=== PATIENT | male | born 1980 ===

== ENCOUNTER 2020-08-06 14:45 | Outpatient (REF) | payer OTHER, SELFPAY | END 2020-08-06 14:46 | disposition home or self-care (01) | LOC: HO.LAB 14:45 | PROVIDERS: PCP Physician Assistant; Visit Provider Internal Medicine | DX: Z20.822 Contact with and (suspected) exposure to COVID-19 (principal) | CPT/HCPCS: 36415; C9803; U0003; U0005 ==

== ENCOUNTER 2021-12-28 19:12 | Emergency (ER) | payer MEDICAID, SELFPAY ==
--- NOTE | ~2021-12-28 | XR_ITS ---
EXAMINATION: XR HAND, RIGHT CLINICAL INFORMATION: Laceration COMPARISON: None TECHNIQUE: AP, oblique, lateral, coned first metacarpal ray radiographs of the right hand. FINDINGS: Soft tissue swelling and irregularity is present adjacent to the tuft of the first distal phalanx. No embedded radiopaque foreign bodies are identified. No fractures, subluxations or arthropathic changes are identified. XR/XR hand RT 2V IMPRESSION: Soft tissue inflammatory changes adjacent to the tuft of the first distal phalanx. No fractures. No embedded radiopaque foreign bodies.
[2021-12-28 19:14] VITALS: BP 135/87; PULSE 82; RESP 18; TEMP 37.1; O2SAT 96; BMI 33.4
[2021-12-28] MEDS: Tranexamic Acid 1,000 MG/10 ML VIAL 500 MG IV (20:01)
--- NOTE | 2021-12-28 20:03 | ED.WOUNDLAC ---
HPI - Wound/Laceration General Chief Complaint: Wound/Laceration Stated Complaint: R Thumb laceration Time Seen by Provider: 12/28/21 19:31 Source: patient Mode of arrival: ambulatory Limitations: no limitations History of Present Illness HPI narrative: Patient presents emergency department for evaluation of a laceration to the right thumb. 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 Denies any pain, numbness or tingling, actively bleeding. Unaware of last tetanus status. Related Data Previous Rx's Medication Instructions Recorded cyclobenzaprine 10 mg tablet 10 mg PO BEDTIME #14 tabs 02/27/21 meloxicam 15 mg tablet 15 mg PO DAILY #14 tabs 02/27/21 cephalexin 500 mg capsule 500 mg PO TID 5 days #15 caps 12/28/21 oxycodone 5 mg tablet 5 mg PO Q8H PRN pain #7 tabs 12/28/21 Allergies Allergy/AdvReac Type Severity Reaction Status Date / Time No Known Allergies Allergy Unverified 03/08/20 19:09 [No Known Allergies*] Review of Systems Review of Systems: Skin: Positive laceration Yes all other systems are reviewed and are negative [facility] Social History Social History Advance Directives: No Physical Exam Vital Signs: Vital Signs: Last Vital Signs Temp 98.5 F 12/28/21 22:06 Pulse 80 12/28/21 22:06 Resp 18 12/28/21 22:06 BP 128/65 12/28/21 22:06 Pulse Ox 98 12/28/21 22:06 O2 Del Method 12/28/21 22:06 BMI result Body Mass Index 33.4 Vital signs have been reviewed as normal and appeared to be correct. Blood pressure normal.? Heart rate normal.? Respiration rate normal. Temperature normal.? Oxygen saturation normal. Appearance: Alert.?Oriented to person, place and time. No acute distress.?Normal affect. Eyes: Pupils equal, round and reactive to light.? ENT: Pharynx normal.?? Neck: Normal inspection.? Neck supple.?? CVS: Heart sounds normal. Normal heart rate and rhythm.? Pulses normal.?? Respiratory: No respiratory distress.? Lung sounds clear to auscultation bilaterally?? Abdomen: Soft and non-tender. Normoactive bowel sounds. ? Skin: Skin warm and dry.? Normal skin color.? Right distal thumb with laceration, unable to approximate the edges, laceration extends through nail bed. Extremities: No lower extremity edema Neuro: Moves all extremities spontaneously. Sensation intact bilaterally. No motor deficits.. Ambulates with normal steady gait. Course Course Course Narrative: Patient is a 41-year-old male with no significant past medical history presenting to emergency department for evaluation of a laceration to the left thumb. Moderate amount of bleeding at the time of exam. Neurovascularly intact. No visualization of the bone. Full AROM to the left thumb. Pending XR for evaluation of retained FB, fracture or dislocation. Will be unable to suture the laceration as edges are not able to be approximated. Will attempt to control the bleeding. Tdap updated. Reevaluation(s) Reevaluation #1: Xeroform gauze applied unable to control bleeding. Applied TXA soaked gauze and wrapped with Geoffrey bandage for compression arm elevated. Will re-evaluate. Time: 19:45 Reevaluation #2: TXA soaked gauze removed. Hemostasis for less than 1 minute, and then began to rebleed. Surgicel applied. Time: 20:30 Reevaluation #3: XR reveals no acute fracture dislocation. No active bleeding at this time, wrapped with clean dry dressing. Used shared decision making with patient, will treat with prophylactic antibiotics, discussed use of Tylenol for pain, will send a prescription to the pharmacy for a short course of oxycodone as needed. Discussed dressing management with avoidance of getting this wet for 3 days, followed by a with prolonged soaking in water. Discussed worrisome signs and symptoms to return back to the emergency department. Advised follow-up with primary care provider as needed. All questions were answered and patient was discharged home in stable condition Time: 21:09 [facility] - Wound/Laceration Medical Records Attestation: I reviewed the patient's medical records. Imaging Data XR hand: Radiologist's impression: XR/XR hand RT 2V IMPRESSION: Soft tissue inflammatory changes adjacent to the tuft of the first distal phalanx. No fractures. No embedded radiopaque foreign bodies. Discharge Plan Discharge Clinical Impression: Laceration Patient Disposition: Home, Self-Care Additional Instructions: Keep the finger dry for the next 3 days, avoid prolonged soaking in water. After 3 days soak the finger in warm water. You may then apply bandage for coverage. Antibiotics have been given, please complete this entire course. Tylenol to be used as needed for pain, you given a prescription for oxycodone to use for severe pain, this is a narcotic, it may be addictive, do not drive or drink alcohol while taking the medication. If you develops worsening pain, redness, swelling, pus-like drainage, or any other worrisome signs or symptoms please return back to the emergency department. Prescriptions: New cephalexin 500 mg capsule 500 mg PO TID 5 Days Qty: 15 0RF oxycodone 5 mg tablet 5 mg PO Q8H PRN (Reason: pain) Qty: 7 0RF Rx Instructions: Partial Fill upon patient request. No Action meloxicam 15 mg tablet 15 mg PO DAILY Qty: 14 0RF cyclobenzaprine 10 mg tablet 10 mg PO BEDTIME Qty: 14 0RF Interventions: ED Discharge Assessment Last Done: 12/28/21 22:07 Discharge Date/Time: 12/28/21 22:08
[2021-12-28] MEDS: Diphth,Pertus(ACell),Tet Adult 0.5 ML SYRINGE IM (20:22)
[2021-12-28 22:06] VITALS: BP 128/65; PULSE 80; RESP 18; TEMP 36.9; O2SAT 98
== END 2021-12-28 22:08 | disposition home or self-care (01) ==
PROVIDERS: Emergency Provider Emergency Medicine
DX: S61.011A Laceration without foreign body of right thumb without damage to nail, initial encounter (principal); W31.82XA Contact with other commercial machinery, initial encounter; Y93.89 Activity, other specified; Y92.512 Supermarket, store or market as the place of occurrence of the external cause; Y99.0 Civilian activity done for income or pay
CPT/HCPCS: 73120; 90471; 90715; 96374; 99282; 99284

== ENCOUNTER 2023-03-03 15:17 | Emergency (ER) | payer MEDICAID, SELFPAY ==
--- NOTE | ~2023-03-03 | XR_ITS ---
EXAMINATION: XR SHOULDER, LEFT CLINICAL INFORMATION: Left shoulder pain for one month COMPARISON: None available. TECHNIQUE: AP external rotation, Grashey, scapular Y, and axillary views of the left shoulder. FINDINGS: Bones have normal alignment. No fractures. The humeral head is well-positioned over the intact glenoid. The glenohumeral joint space is normal. The acromiohumeral distance is normal. There are no osteophytes projecting from the undersurface of the acromioclavicular joint. No hook-shaped acromion, os acromiale or subacromial enthesophyte. The acromion has type 2 configuration. No osseous findings that would predispose to a subacromial impingement disorder. No evidence of calcium deposition within rotator cuff tendons. XR/XR shoulder LT min 2V IMPRESSION: Normal left shoulder.
[2023-03-03 15:35] VITALS: BP 142/89; PULSE 81; RESP 18; TEMP 36.8; O2SAT 97; BMI 34.2
--- NOTE | 2023-03-03 15:35 | ED_ITS ---
HPI - Male Genitourinary General Chief complaint: General Medical Stated complaint: blood in urine? Time Seen by Provider: 03/03/23 20:15 Source: patient Mode of arrival: ambulatory Limitations: no limitations History of Present Illness HPI Narrative: 42-year-old male presents emergency department complaints he states he has noticed some blood in his stool most recently 3 days ago he has left shoulder pain for the past month and he noticed a rash today. Patient has a fall injuries denies chest pain cough fever the rash is not itchy is not red he has never had this rash before and seems to be getting better already. Patient states never had any issues with rectal bleeding he has never had a colonoscopy. SARs shoulders done of any injuries or falls he has not taken anything for the pain. Related Data Previous Rx's Medication Instructions Recorded cyclobenzaprine 10 mg tablet 10 mg PO BEDTIME #14 tabs 02/27/21 meloxicam 15 mg tablet 15 mg PO DAILY #14 tabs 02/27/21 cephalexin 500 mg capsule 500 mg PO TID 5 days #15 caps 12/28/21 oxycodone 5 mg tablet 5 mg PO Q8H PRN pain #7 tabs 12/28/21 Allergies Allergy/AdvReac Type Severity Reaction Status Date / Time No Known Allergies Allergy Unverified 03/08/20 19:09 [No Known Allergies*] Review of Systems 2 Review of Systems: Review of systems: General: Patient denies any fever chills recent illness or falls Musculoskeletal: Denies back pain or body aches or other injuries HEENT: denies headache, runny nose, ear pain Respiratory: denies shortness of breath, cough Cardiovascular: no chest pain or palpitations : denies dysuria, frequency Abdomen: no nausea vomiting denies abdominal pain Extremities: no swelling, he does have left shoulder pain pain Skin: Macular papular rash to his back no diaphoresis Yes all other systems are reviewed and are negative PMFSH Social History Social History Advance Directives: No Advance Directives Information Provided: No Physical Exam 2 Vital Signs: Vital Signs: Last Vital Signs Temp 98.2 F 03/03/23 15:35 Pulse 81 03/03/23 15:35 Resp 18 03/03/23 15:35 BP 142/89 H 03/03/23 15:35 Pulse Ox 97 03/03/23 15:35 O2 Del Method Room Air 03/03/23 15:35 BMI result Body Mass Index 34.2 General: Well-appearing well-nourished in no signs of distress HEENT: Normocephalic atraumatic Neck: No signs of JVD, no masses no tenderness or lymphadenopathy Cardiovascular: Regular rate and rhythm Respiratory: Clear to auscultation bilaterally Abdomen: Soft nontender no masses rectal exam deferred as patient only has normal labs normal vitals no signs of dehydration Extremities: Normal pedal pulses no signs of edema Skin: Dry warm no rashes Back: No tenderness full ROM Course Course Course Narrative: RME: 42yo M w/no sig PMHx c/o L shoulder pain x 1mos w/decreased ROM, constipation w/bright red blood in stool x2 weeks, & rash noted to back x1 week. denies hx hemorrhoids, but admits to mild rectal itching. denies rash being pruritic, new exposures, new medications, rectal pain, fever, abdominal pain +scaly rash noted to back. No palm involvement Labs, UA, Occult stool, XR ordered Full HPI, ROS and PE to be performed by primary ED provider. Medical Decision Making Medical Decision Making MDM Narrative: Well-healing marrow with no acute disease process multiple things going on including a rash which looks self-limiting. Left shoulder pain with full range of motion and tenderness to the greater trochanter think patient is safe to follow-up with PDS had negative x-ray here patient is not anemic with rectal bleeding think he is safe to go home as well follow up with his primary care doctor. Differential Diagnosis Differential Diagnoses: The differential diagnosis associated with the presentation includes Differential diagnosis includes left shoulder contusion abrasion dislocation fracture or internal shoulder injury rotator cuff injury as far as the rash looks like papular does not look like it is anything dangerous and should resolve without any intervention as far as the blood in stool he has no anemia think the patient looks well this could be colon cancer something also need follow-up with Admission/Observation Consideration of admission/observation: Escalation of care including admission/observation considered Lab Data MDM Lab Attestation statement: I reviewed the patient's lab results. 03/03/23 16:06 03/03/23 16:06 Labs: Lab Results 03/03/23 Range/Units 16:06 WBC 7.8 (4.8-10.8) X10*3/uL RBC 5.69 (4.60-5.80) X10*6/uL Hgb 15.9 (14.0-18.0) g/dl Hct 47.9 (42.0-52.0) % MCV 84.2 (80.0-98.0) fL MCH 27.9 (27.0-33.0) pg MCHC 33.2 (31.0-36.0) g/dl RDW 13.7 (11.0-16.0) % Plt Count 273 (160-400) X10*3/uL MPV 10.5 (9.4-12.4) fL Immature Gran % (Auto) 0.3 (0.0-0.4) % Neut % (Auto) 69.3 (45-73) % Lymph % (Auto) 24.5 (20-40) % Ventura % (Auto) 4.7 (2-11) % Eos % (Auto) 0.8 (0-4) % Baso % (Auto) 0.4 (0-2) % Lymph # (Auto) 1.9 (1.2-4.9) X10*3/uL Ventura # (Auto) 0.4 (0.1-1.2) X10*3/uL Eos # (Auto) 0.1 (0.0-0.4) X10*3/uL Baso # (Auto) 0.0 (0.0-0.2) X10*3/uL Abs Immat Gran (auto) 0.02 (0.00-0.03) X10*3/uL Absolute Neuts (auto) 5.4 (2.0-8.3) x10*3/uL Absolute Nucleated RBC 0.000 (0.0-0.012) X10*3/uL Nucleated RBC % (auto) 0.0 (0.0-0.2) /100WBC PT 11.6 (11.1-13.3) SEC INR 1.0 (0.9-1.1) Sodium 141 (135-145) mmol/L Potassium 3.9 (3.3-5.1) mmol/L Chloride 109 H (96-108) mmol/L Carbon Dioxide 25 (22-29) mmol/L Anion Gap 11 L (12-20) BUN 11 (9-16) mg/dL Creatinine 0.89 (0.5-1.4) mg/dL Estim Creat Clear Calc 125.1 Estimated GFR > 60 Random Glucose 134 H (60-115) mg/dL Calcium 9.1 (8.4-10.2) mg/dL Total Bilirubin 0.3 (0.0-1.0) mg/dL Direct Bilirubin 0.1 (0.0-0.5) mg/dL AST 31 (5-37) U/L ALT 45 H (0-40) U/L Alkaline Phosphatase 63 (39-117) U/L Total Protein 7.3 (6.5-8.0) g/dL Albumin 4.1 (3.5-5.0) g/dL Lipase 42 (8-78) U/L Radiology Impression Discussion of test interpretation with radiology: I have reviewed the radiologist's reading. Discharge Plan Discharge Clinical Impression: Acute pain of left shoulder, PRB (rectal bleeding) Patient Disposition: Home, Self-Care Instructions: Shoulder Pain (ED), Heat Pack Application (ED), Rectal Bleeding (ED), Acute Rash (ED) Additional Instructions: You seen today for left shoulder pain a rash to back and rectal bleeding. You had x-ray of her shoulder which was unremarkable you need follow-up for Orthopedics for the shoulder. Says the rash that should resolve and should be self-limiting. As far as your rectal bleeding he had a normal hemoglobin you do need follow-up this could be a sign of something that requires colonoscopy so please call follow-up with her doctor. If you have any other concerns please do not hesitate to come back to emergency department. Prescriptions: No Action cephalexin 500 mg capsule 500 mg PO TID 5 Days Qty: 15 0RF oxycodone 5 mg tablet 5 mg PO Q8H PRN (Reason: pain) Qty: 7 0RF Rx Instructions: Partial Fill upon patient request. meloxicam 15 mg tablet 15 mg PO DAILY Qty: 14 0RF cyclobenzaprine 10 mg tablet 10 mg PO BEDTIME Qty: 14 0RF
[2023-03-03 16:10] LABS: MANUAL DIFF FLAG NO
[2023-03-03 16:11] LABS: Basophils Percent Auto 0.4 % (0-2); Eosinophils Absolute Auto 0.1 X10*3/uL (0.0-0.4); Eosinophils Percent Auto 0.8 % (0-4); Hematocrit 47.9 % (42.0-52.0); Hemoglobin 15.9 g/dl (14.0-18.0); Imm Gran Abs Auto 0.02 X10*3/uL (0.00-0.03); Imm Gran Pct Auto 0.3 % (0.0-0.4); Lymphocytes Absolute Auto 1.9 X10*3/uL (1.2-4.9); Lymphocytes Percent Auto 24.5 % (20-40); Mean Corpuscular HGB Conc 33.2 g/dl (31.0-36.0); Mean Corpuscular Hemoglobin 27.9 pg (27.0-33.0); Mean Corpuscular Volume 84.2 fL (80.0-98.0); Mean Platelet Volume 10.5 fL (9.4-12.4); Monocytes Absolute Auto 0.4 X10*3/uL (0.1-1.2); Monocytes Percent Auto 4.7 % (2-11); Neutrophils Absolute Auto 5.4 x10*3/uL (2.0-8.3); Neutrophils Percent Auto 69.3 % (45-73); Platelet Count 273 X10*3/uL (160-400); Red Blood Count 5.69 X10*6/uL (4.60-5.80); Red Cell Distribution Width 13.7 % (11.0-16.0); White Blood Count 7.8 X10*3/uL (4.8-10.8)
[2023-03-03 16:19] LABS: Prothrombin Time 11.6 SEC (11.1-13.3)
[2023-03-03 16:25] LABS: Alanine Aminotransferase 45 U/L (0-40); Albumin Level 4.1 g/dL (3.5-5.0); Alkaline Phosphatase 63 U/L (39-117); Anion Gap 11 (12-20); Aspartate Amino Transferase 31 U/L (5-37); Bilirubin Direct 0.1 mg/dL (0.0-0.5); Bilirubin Total 0.3 mg/dL (0.0-1.0); Blood Urea Nitrogen 11 mg/dL (9-16); Calcium 9.1 mg/dL (8.4-10.2); Carbon Dioxide 25 mmol/L (22-29); Chloride 109 mmol/L (96-108); Creatinine Clr Calc Pharmacy 125.1; Estimated Glomerular Filt Rate > 60; Glucose Random 134 mg/dL (60-115); Lipase 42 U/L (8-78); Potassium 3.9 mmol/L (3.3-5.1); Sodium 141 mmol/L (135-145); Total Protein 7.3 g/dL (6.5-8.0)
[2023-03-03 21:04] VITALS: BP 137/94; PULSE 85; RESP 16; O2SAT 96
== END 2023-03-03 21:15 | disposition home or self-care (01) ==
PROVIDERS: Physician Assistant; Emergency Provider Student in an Organized Health Care Education/Training Program; PCP Physician Assistant
DX: M25.512 Pain in left shoulder (principal); K62.5 Hemorrhage of anus and rectum; R21 Rash and other nonspecific skin eruption
CPT/HCPCS: 36415; 73030; 80048; 80076; 83690; 85025; 85610; 99283; 99284

== ENCOUNTER 2024-06-29 11:49 | Outpatient (REF) | payer MEDICAID, SELFPAY ==
[2024-06-29 14:23] LABS: MANUAL DIFF FLAG NO
[2024-06-29 14:38] LABS: Basophils Percent Auto 0.6 % (0-2); Eosinophils Absolute Auto 0.1 X10*3/uL (0.0-0.4); Eosinophils Percent Auto 0.8 % (0-4); Hematocrit 50.8 % (42.0-52.0); Hemoglobin 16.6 g/dl (14.0-18.0); Imm Gran Abs Auto 0.02 X10*3/uL (0.00-0.03); Imm Gran Pct Auto 0.3 % (0.0-0.4); Lymphocytes Percent Auto 31.3 % (20-40); Mean Corpuscular HGB Conc 32.7 g/dl (31.0-36.0); Mean Corpuscular Hemoglobin 27.1 pg (27.0-33.0); Mean Corpuscular Volume 82.9 fL (80.0-98.0); Mean Platelet Volume 10.7 fL (9.4-12.4); Monocytes Absolute Auto 0.5 X10*3/uL (0.1-1.2); Monocytes Percent Auto 6.9 % (2-11); Neutrophils Absolute Auto 3.9 x10*3/uL (2.0-8.3); Neutrophils Percent Auto 60.1 % (45-73); Platelet Count 296 X10*3/uL (160-400); Red Blood Count 6.13 X10*6/uL (4.60-5.80); Red Cell Distribution Width 14.1 % (11.0-16.0); White Blood Count 6.5 X10*3/uL (4.8-10.8)
[2024-06-29 15:01] LABS: Alanine Aminotransferase 81 U/L (0-40); Albumin Level 4.2 g/dL (3.5-5.0); Alkaline Phosphatase 63 U/L (39-117); Anion Gap 16 (12-20); Aspartate Amino Transferase 37 U/L (5-37); Bilirubin Total 0.7 mg/dL (0.0-1.0); Blood Urea Nitrogen 12 mg/dL (9-16); Calcium 9.1 mg/dL (8.4-10.2); Carbon Dioxide 26 mmol/L (22-29); Chloride 106 mmol/L (96-108); Cholesterol 236 mg/dL (<200); Estimated Glomerular Filt Rate > 60; Glucose Random 99 mg/dL (60-115); HDL Cholesterol 38 mg/dL (>40); LDL Cholesterol Calculated 169 mg/dL (<100); Potassium 4.1 mmol/L (3.3-5.1); Sodium 144 mmol/L (135-145); Total Protein 7.7 g/dL (6.5-8.0); Triglycerides 146 mg/dL (<150)
[2024-06-29 15:19] LABS: TSH reflex Free T4 0.97 uIU/mL (0.32-4.0)
[2024-06-30 08:00] LABS: HIV AB/AG Nonreactive (Nonreactive); HIV Num 1 0.06 S/CO (0.00-0.99); ~HepC Num1 0.07 S/CO (0.00-0.79); ~Hepatitis C Antibody Nonreactive (Nonreactive)
[2024-06-30 08:10] LABS: Syphilis Screen Nonreactive (Nonreactive)
== END 2024-06-29 11:50 | disposition home or self-care (01) ==
LOC: HO.CHCLDS 11:49
PROVIDERS: Visit Provider Internal Medicine
DX: R53.83 Other fatigue (principal); Z11.3 Encounter for screening for infections with a predominantly sexual mode of transmission; F32.A Depression, unspecified; R10.13 Epigastric pain
CPT/HCPCS: 36415; 80053; 80061; 84443; 85025; 86780; 86803; 87338; 87389

== ENCOUNTER 2025-02-13 10:21 | Outpatient (REF) | payer MEDICAID, SELFPAY ==
--- OUTSIDE RECORDS SUMMARY | 2025-02-13 11:30 | XMS_ITS | Clinical Summary ---
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 pylori infection Take 1 tablet (20 mg) by mouth Once per day. 30 tablet 5 Active ketoconazole (NIZOral) 2 % cream Apply topically Once per day. 60 g 3 5 Active cyclobenzaprine (Flexeril) 10 MG tablet Take 1 tablet (10 mg) by mouth 3 times daily for 10 days. 30 tablet 5 Active meloxicam (Mobic) 15 MG tablet Take 1 tablet (15 mg) by mouth Once per day. 30 tablet 1 5 02/05/20 25 Active Problems Problem Noted Date Diagnosed Date Acute bilateral low back pain with right-sided s ciatica 12/06/2024 Assessment & Plan (12/06/2024 3:06 PM EDT): Told to rest, apply ice packs, avoid heavy lifting, will order meloxicam/cyclobenzaprine, call back if not improving in 2 weeks, er precautions reviewed Mixed hyperlipidemia 07/01/2024 Encounter for medical examination to establish c are 03/08/2024 Assessment & Plan (03/08/2024 2:23 PM EDT): Patient has not followed up with a pcp in over 1 year No hx of hospitalization No er visit on the past year Pmhx; hyperlipidemia Pshx: right inguinal hernia All: - Meds- Has 3 kids without major medical conditions Encounters Date Type Department Care Team Description 02/08/2025 Travel 02/07/2025 Telephone [facility] [address] [place] [address] Julio Cesar Tang MD chart prep 02/06/2025 Telephone [facility] [address] [place] [address] Julio Cesar Tang MD No Show 02/06/2025 Travel 02/03/2025 Telephone [facility] [address] [place] [address] Julio Cesar Tang MD chart prep 12/06/2024 2:45 PM EDT Telemedicine [facility] [address] [place] [address] Julio Cesar Tang MD Mixed hyperlipidemia (Primary Dx); Acute bilateral low back pain with right-sided sciatica 12/06/2024 Travel 12/05/2024 Telephone [facility] [address] [place] [address] Julio Cesar Tang MD Nurse Triage from Last 3 Months Family History Medical History Relation Name Comments No Known Problems Father Alzheimer's disease Mother Hyperlipidemia Mother Hypertension Mother Throat cancer Mother's Brother Stomach cancer Mother's Sister Hypertension Sister Relation Name Status Comments Father Mother Mother's Brother Mother's Sister Sister Social History Tobacco Use Types Packs/Day Years Used Date Smoking Tobacco: Never Smokeless Tobacco: Never Tobacco Cessation:Counseling Given: Not Answered Alcohol Use Standard Drinks/Week Comments Yes 0 (1 standard drink = 0.6 oz pur e alcohol) social beer Depression Answer Date Recorded Patient Health Questionnaire-9 Score 5 06/29/2024 Patient Health Questionnaire-9 Score 5 06/29/2024 Last PHQ-9: Questionnaire Data Not on file 0 06/29/2024 Housing Stability Answer Date Recorded What is your housing situation today? I have marilyn ortega 06/21/[address] you li ve. Do you have problems with any of the following? None of the above 06/21/2024 Food Insecurity Answer Date Recorded Within the past 12 months, y ou worried that your food would run out before you got money to buy more: Never True 06/21/2024 Within the past 12 months,th e food you bought just didn't last and you didn't have enough money to get more: Never True Transportation Answer Date Recorded In the past 12 months, has l ack of transportation kept you from medical appts, meetings, work or from getting things needed for daily living? No 06/21/2024 Utilities Answer Date Recorded In the past 12 months, has t he electric, gas, oil or water company threatened to shut off services in your home? No 06/21/2024 Depression Answer Date Recorded Patient Health Questionnaire-2 Score 4 06/29/2024 Internet Access Answer Date Recorded Internet Access Q1 Yes 06/21/2024 Internet Access Q2 Not on file 06/21/2024 Sex and Gender Information Value Date Recorded Sex Assigned at Male 04/21/2022 10:39 AM EDT Legal Sex Male 10:39 AM EDT Gender Identity Male 04/21/2022 10:39 AM EDT Sexual Orientation Straight 04/21/2022 10 :39 AM EDT Last Filed Vital Signs Vital Sign Reading Time Taken Comments Blood Pressure 137/88 06/29/2024 10:52 AM EST Pulse 72 06/29/2024 10:52 AM EST Temperature 36.7 C (98 F) 06/29/2024 10:52 AM EST Respiratory Rate 20 06/29/2024 10:52 AM EST Oxygen Saturation 98% 06/29/2024 10:52 AM EST Inhaled Oxygen Concentration - - Weight 103 kg (228 lb) 06/29/2024 10:52 AM EST Height 172.7 cm (5' 8 ) 06/29/2024 10:52 AM EST Body Mass Index 34.67 06/29/2024 10:52 AM EST Plan of Treatment Health Maintenance Due Date Last Done Comments Disability Screening 1980 Family Planning (PISQ) 1995 HPV Vaccines (1 - Male 3-dos e series) 1995 Hepatitis B Vaccines (1 of 3 - 19+ 3-dose series) 1999 COVID-19 Vaccine (3 - 2023-2 5 season) 2024 03/12/2021, 02/18/2021 Influenza Vaccine (#1) 2025 SDOH Screening 06/21/2025 06/21/2024 Depression Screening 06/29/2025 06/29/2024, 06/29/2024 Tobacco Screening 06/29/2025 06/29/2024 Alcohol/Substance Use Screening 12/06/2025 12/06/2024 Lipid Panel 06/29/2029 06/29/2024 Zoster Vaccines (1 of 2) 2030 DTaP/Tdap/Td Vaccines (3 - T d or Tdap) 12/29/2031 12/28/2021, 02/18/2018 RSV Patients and Patients Aged 60 years or older (1 - 1-dose 75+ series) 2055 HIV Screening Completed 06/29/2024 Hepatitis C Screening Completed 06/29/2024 HIB Vaccines Aged Out No longer eligi ble based on patient's age to complete this topic Hepatitis A Vaccines Aged Out No long er eligible based on patient's age to complete this topic IPV Vaccines Aged Out No longer eligi ble based on patient's age to complete this topic Meningococcal B Vaccine Aged Out No l onger eligible based on patient's age to complete this topic Meningococcal Vaccine Aged Out No ebenezer amita eligible based on patient's age to complete this topic Pneumococcal Vaccine: Pediatrics (0 to 5 Years) and At-Risk Patients (6 to 49) Years Aged Out No longer eligible b ased on patient's age to complete this topic RSV under 20 months Aged Out No longe r eligible based on patient's age to complete this topic Rotavirus Vaccines Aged Out No longer eligible based on patient's age to complete this topic Procedures Procedure Name Priority Date/Time Associated Diagnosis Comments HEPATITIS C AB W/REFL TO HCV RNA, QN, PCR Routine 06/29/2024 11:53 AM EST Screen for STD (sexually transmitted disease) HIV 1/2 ANTIGEN/ANTIBODY, FOURTH GENERATION W/RFL Routine 06/29/2024 11:53 AM EST Screen for STD (sexually transmitted disease) LIPID PANEL, STANDARD Routine 06/29/2024 11:53 AM EST Other fatigue from Last 3 Months or Most Recently Relevant to Health Maintenance Results * Hepatitis C Antibody with Reflex to HCV, RNA, Quantitative, Real-Time PCR (06/29/2024 11:53 AM EST) Pathologist [facility] Hepatitis C Antibody Nonreactive Nonreactive [facility] Comment:Antibodies to HCV no t detected; does not exclude early acuteHCV infection. Blood Venous blood specimen / Unknown 06/29/2024 11:53 AM EST 06/29/2024 2:17 PM EST Shasha Morataya MD LAB BLOOD ORDERABLES Final Result Performing Organization Address City/[facility]/ZIP Co de Phone Number [facility] [address] [place] [phone] * HIV-1/2 Antigen and Antibodies, Fourth Generation, with Reflexes (06/29/2024 11:53 AM EST) [facility] HIV AB/AG Nonreactive Nonreactive [facility] Comment:HIV-1 p24 Ag and/or HIV-1/HIV-2 Ab not detected.A test result that is nonreactive does not exclude thepossibility of exposure to or infection with HIV-1 and/orHIV-2. Nonreactive results in this assay for individualswith prior exposure to HIV-1 and/or HIV-2 may be due toantigen and antibody levels that are below the limit ofdetection of this assay.The [email or web address] HIV Ag/Ab Combo assay result andsupplemental assay results should be interpreted inconjunction with the patient's clinical presentation,history and other laboratory results. If the results areinconsistent with clinical evidence, additional testing issuggested to confirm the result. Blood Venous blood specimen / Unknown 06/29/2024 11:53 AM EST 06/29/2024 2:17 PM EST us Shasha Morataya MD LAB BLOOD ORDERABLES Final Result Performing Organization Address City/[facility]/ZIP Co de Phone Number [facility] [address] [place] [phone] * (ABNORMAL) Lipid Panel, Standard (06/29/2024 11:53 AM EST) [facility] Triglycerides 146 <150 mg/dL [facility] Comment:Desirable Triglyceri de: less than 150 mg/dLBorderline High Triglyceride 150-199 mg/dLHigh Triglyceride: 200-499 mg/dLVery High Triglyceride: greater than or equal to 5OO mg/dL Cholesterol 236(H) <200 mg/dL [facility] Comment:Desirable Cholestero l: less than 200 mg/dLBorderline High Cholesterol: 200-239 mg/dLHigh Cholesterol: greater than 239 mg/dL LDL Cholesterol Calculated 169(H) <100 mg/dL [facility] Comment:Desirable LDL: less than 100 mg/dLNear Optimal/Above Optimal LDL: 110- 129 mg/dLBorderline High LDL: 130-159 mg/dLHigh LDL: 160-189 mg/dLVery High LDL: greater than or equal to 190 mg/dL HDL Cholesterol 38(L) >40 mg/dL [facility] Comment:Desirable HDL: great er than 40 mg/dL Note: This HDL assay may give artificially low results in patients with liver disease. Blood Venous blood specimen / Unknown 06/29/2024 11:53 AM EST 06/29/2024 2:17 PM EST us Shasha Morataya MD LAB BLOOD ORDERABLES Final Result [facility] [address] [place] [address] [phone] from Last 3 Months or Most Recently Relevant to Health Maintenance Insurance [facility] C3 Care Teams Chainstitch Elastic Attacher Relationship Specialty Start Date End Date Julio Cesar Tang MD [address] [place] [id number] PCP - General Internal Medicine 03/08/24
--- OUTSIDE RECORDS SUMMARY | 2025-02-13 11:30 | XMS_ITS | Clinical Summary ---
Author Organization [facility] ity Address [address] [place] [address] Care Team Providers Care Director Of Blood Name Role Phone Unavailable Primary Care Provider Unavailabl e Social History Tobacco Use Types Packs/Day Years Used Date Smoking Tobacco: Never Assessed Sex and Gender Information Value Date Recorded Sex Assigned at Not on file Legal Sex Male 2:58 AM EST Gender Identity Not on file Sexual Orientation Not on file Plan of Treatment Health Maintenance Due Date Last Done Comments DTaP,Tdap,and Td Vaccines (1 - Tdap) 1999 Hepatitis B Vaccines (1 of 3 - 19+ 3-dose series) 1999 COVID-19 Vaccine (2023-2 5 season) 2024 Depression Screening 06/22/2024 Influenza Vaccine (#1) 2025 HIB Vaccines Aged Out No longer eligi ble based on patient's age to complete this topic HPV Vaccines Aged Out No longer eligi ble based on patient's age to complete this topic Hepatitis A Vaccines Aged Out No long er eligible based on patient's age to complete this topic IPV Vaccines Aged Out No longer eligi ble based on patient's age to complete this topic MMR Vaccines Aged Out No longer eligi ble based on patient's age to complete this topic Meningococcal ACWY Vaccine Aged Out N o longer eligible based on patient's age to complete this topic Meningococcal B Vaccine Aged Out No l onger eligible based on patient's age to complete this topic Pneumococcal Vaccine: Pediat rics (0 to 5 Years) and At-Risk Patients (6 to 49 Years) Aged Out No longer eligible b ased on patient's age to complete this topic RSV Immunization Patients Un darryn 20 months Aged Out No longer eligible b ased on patient's age to complete this topic Varicella Vaccines Aged Out No longer eligible based on patient's age to complete this topic
[2025-02-13 14:50] LABS: Albumin Level 4.3 g/dL (3.5-5.0); Alkaline Phosphatase 57 U/L (39-117); Anion Gap 12 (12-20); Aspartate Amino Transferase 38 U/L (5-37); Blood Urea Nitrogen 12 mg/dL (9-16); Calcium 9.2 mg/dL (8.4-10.2); Carbon Dioxide 27 mmol/L (22-29); Chloride 105 mmol/L (96-108); Cholesterol 232 mg/dL (<200); Estimated Glomerular Filt Rate > 60; HDL Cholesterol 38 mg/dL (>40); Potassium 4.2 mmol/L (3.3-5.1); Sodium 140 mmol/L (135-145); Total Protein 7.3 g/dL (6.5-8.0); Triglycerides 203 mg/dL (<150)
[2025-02-13 15:00] LABS: Alanine Aminotransferase 45 U/L (0-40)
== END 2025-02-13 10:22 | disposition home or self-care (01) ==
LOC: HO.CHCLDS 10:21
PROVIDERS: Visit Provider Internal Medicine
DX: R10.13 Epigastric pain (principal); E78.2 Mixed hyperlipidemia
CPT/HCPCS: 36415; 80053; 80061; 87338